=== PATIENT | male | born 1995 | race Caucasian/White ===

== ENCOUNTER 2020-12-08 16:02 | Observation (INO) | payer MEDICAID, SELFPAY ==
[2020-12-08] VITALS (9 sets, daily range): BP systolic 114–126; BP diastolic 57–92; PULSE 80–118; RESP 13–18; TEMP 36.7–36.9; O2SAT 98–100; BMI 19.3; BMI 18.1
--- NOTE | 2020-12-08 16:26 | EKG12_ITS ---
Test Reason : Blood Pressure : / mmHG Vent. Rate : 115 BPM Atrial Rate : 115 BPM P-R Int : 150 ms QRS Dur : 148 ms QT Int : 372 ms P-R-T Axes : 054 -62 102 degrees QTc Int : 514 ms Atrial-sensed ventricular-paced rhythm Abnormal ECG Confirmed by ENRIQUETA VILLANUEVA, GUILLE ([id number]), film and video editor EARLINE GIRARD ([id number]) on 12/11/2020 7:49:56 AM Referred By: Confirmed By:GUILLE ROBISON MD
--- NOTE | 2020-12-08 16:26 | EDS_ITS ---
HPI History of Present Illness Chief Complaint: Chest Pain Detail of Chief Complaint: Pain and request for detox from heroin Informant: patient Onset/Context/Timing Current Severity: 0/10 Narrative Narrative: Patient states that he was walking when he developed left-sided chest pain that was sharp and stabbing and last about 25 to 30 minutes. Patient presents via EMS. Patient states that he is homeless and was stranded in the area here but he is from [facility]. Patient tells me that he is homeless. Patient states that he uses heroin daily and last used around 1 PM. He normally uses about a gram a day and he snorts it. Patient currently not having chest pain. 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 He has no primary care physician. He denies recent travel or surgery. Patient states he is had similar pain in the past but no etiology has been found. Prior similar symptoms: Yes [facility] Medical History (Updated 12/08/20 @ 17:[address] Sal Jerome, DO) Pacemaker Third degree heart block Home Medications NK 12/08/20 [History Last Taken Unknown] Allergy/AdvReac Type Severity Reaction Status Date / Time No Known Allergies Allergy Verified 12/08/20 16:04 Social History Smoking Status: Current every day smoker tobacco type: cigarettes ROS ROS ED Constitutional Constitutional ED: Reports systems reviewed and no addt'l complaints, except as documented; Denies body ache(s), change in weight or chills Eyes Eyes: Denies acute decrease in peripheral vision, change in vision, double vision or loss of vision ENT ENT ED: Reports none; Denies ear pain, lip swelling, loss taste/smell, neck pain, otalgia or sore throat Cardiovascular Cardiovascular: Reports none and chest pain; Denies abdominal pain, chest pain with activity, leg edema, lightheadedness, palpitations, rapid heart rate or syncope Respiratory/Chest Respiratory/Chest: Reports none; Denies change in mental status, dry cough, dyspnea, hemoptysis, shortness of breath at rest or shortness of breath with exertion Gastrointestinal Gastrointestinal: Reports none; Denies abdominal pain, change in stool character, diarrhea, hematemesis, hematochezia, melena, rectal bleeding or vomiting Genitourinary Genitourinary ED: Reports none; Denies abdominal discomfort, anuria, dysuria, genital pain or polyuria Musculoskeletal Musculoskeletal: Reports none; Denies arthralgias, back pain, difficulty walking, extremity pain, muscle weakness or myalgias Integumentary Reports none; Denies abscess or rash Neurologic Neurologic: Reports none; Denies abnormal gait, confusion, focal weakness, frequent falls, headache(s), loss of vision, numbness, paresthesias, radicular pain, vertigo or weakness Psychiatric Psychiatric: Reports systems reviewed and no addt'l complaints, except as documented and none; Denies behavioral changes, confusion, difficulty concentrating, hallucinations, suicidal ideation, tactile hallucinations or visual hallucinations Endocrine Endocrinology: Denies none, cold intolerance, excessive sweating, fatigue or heat intolerance Hematologic/Lymphatic Hematologic/Lymphatic: Reports none; Denies anemia, easy bleeding or easy bruising Allergic/Immunologic Allergic/Immunologic ED: Denies as per HPI, none, lip swelling, mouth swelling, throat swelling, tongue swelling or hives EXAM Physical Exam Const Vital Signs: 12/08/20 16:04 12/08/20 16:10 12/08/20 16:50 Temperature 98.1 F Temperature Source Temporal Pulse Rate 118 H 103 H Respiratory Rate 13 16 Respiratory Effort Normal Non-Labored Respiratory Pattern Normal Blood Pressure 126/90 H 114/92 H Blood Pressure Mean 102 99 Pulse Ox 100 100 Oxygen Delivery Method Room Air Room Air Positive well nourished and well developed General Appearance ED: well developed and NAD HEENT Reports TM's clear and moist mucous membranes normocephalic and atraumatic; Negative for trauma or tenderness Tympanic Membrane ED: Yes TM's clear Eyes PERRL and EOMs intact bilaterally General Eye ED: Negative for pale conjunctiva or scleral icterus Neck no lymphadenopathy, supple and no JVD General: Negative for tenderness Chest Wall inspection of chest normal and palpation of chest normal Chest: Negative for tenderness Resp normal respiratory effort and clear to auscultation bilaterally Effort and Inspection: Negative for respiratory distress or pain with movement Auscultation: Negative for rhonchi, wheezes or diminished lung sounds Cardio regular rate, regular rhythm, S1 normal heart sound, S2 normal heart sound and no murmurs Peripheral Pulses: pulses 2+ throughout GI normal to inspection, nondistended, normoactive bowel sounds, soft to palpation, non-tender, non-distended and no masses Back/Spine no CVA tenderness and no thoracic nor lumbar tenderness Extremity normal to inspection General Extremety ED: Negative for edema General Extremity: Negative for edema Neuro oriented x3, CN's II-XII intact bilaterally, no sensory deficits noted and gait normal Sensorium / Orientation: awake, alert, oriented to person, oriented to place and oriented to time Motor Exam: strength 5/5 throughout and strength abnormal Psych mental status grossly normal Skin no rashes or lesions noted and no wounds MDM MDM MDM Narrative Medical decision making narrative: Case discussed with hospitalist will evaluate patient for admission for detox from heroin. Etiology of patient's chest pain unclear although I do not feel its related to coronary artery disease. Lab Data Attestation: I reviewed the patient's lab results. Labs: Laboratory Results - last 24 hr 12/08/20 12/08/20 Unknown Unknown WBC 21.8 H RBC 5.64 Hgb 16.8 H Hct 50.2 MCV 89.0 MCH 29.8 MCHC 33.5 RDW Std Deviation 43.1 RDW Coeff of Roxana 13.2 Plt Count 398 MPV 11.5 Immature Gran % (Auto) 0.600 Neut % (Auto) 70.3 H Lymph % (Auto) 21.2 [place] % (Auto) 6.3 Eos % (Auto) 1.2 Baso % (Auto) 0.4 Absolute Neuts (auto) 15.3 H Absolute Lymphs (auto) 4.63 H Nucleated RBC % 0 Sodium 130 L Potassium 4.1 Chloride 94 L Carbon Dioxide 25.0 Anion Gap 11 BUN 26 H Creatinine 1.19 Estim Creat Clear Calc 89.12 Est GFR (MDRD) Af Amer 96 Est GFR (MDRD) Non-Af 79 BUN/Creatinine Ratio 21.8 H Glucose 76 Calcium 11.0 H Troponin I High Sens 36.1 Radiography Chest X-Ray - ED: 1 View Diagnostic Testing: Radiology Impression Chest X-Ray 12/08/20 16:30 IMPRESSION: No acute radiographic abnormalities. Electronically Signed: Michael Mccauley MD at 16:59 EDT Tel , Service support , 1 view chest are obtained interpreted by myself as no acute disease process. Radiology in agreement. EKG Initial EKG: Comments: Atrially sensed ventricularly paced rhythm with a ventricular ra te of 115 bpm with left bundle branch block morphology. Prior EKG tracings: not available for review Discharge Plan Triage Chief Complaint: Chest Pain Other Complaint: Palpitations ED Provider: Sal Jerome Dx/Rx/DC Orders Clinical Impression: Chest pain, Opiate addiction Prescriptions: No Action NK RF: 0 Primary Care Provider: Care Physician,No Primary Referrals: Care Physician,No Primary [Primary Care Provider] - Disposition Disposition: Acute Care Hospital [facility]
[2020-12-08] MEDS: 0.9% Normal Saline 1,000 ML 1000 ML IV (16:30)
--- NOTE | 2020-12-08 16:30 | RAD_ITS ---
INDICATION: chest pain EXAMINATION/TECHNIQUE: X-RAY - XR Chest 1 View COMPARISON: None. FINDINGS: The lungs are clear. The cardiomediastinal silhouette is unremarkable. Left-sided cardiac device. No pleural effusion or pneumothorax. No acute osseous abnormalities. RAD/Chest 1 View (Portable) IMPRESSION: No acute radiographic abnormalities. Electronically Signed: Michael Mccauley MD at 16:59 EDT Tel , Service support ,
[2020-12-08 17:03] LABS: Absolute Lymphocyte Count 4.63 X10^3/uL (0.83-4.51); Absolute Neutrophil Count 15.3 X10^3/uL (2.0-7.7); Basophil# 0.09 X10^3/uL; Basophil% 0.4 % (0-1); Eosinophil# 0.26 X10^3/uL; Eosinophils% 1.2 % (0-5); Hematocrit 50.2 % (40-54); Hemoglobin 16.8 g/dL (13.0-16.5); Lymphocyte # 4.63 X10^3/ul (0.83-4.51); Lymphocyte % 21.2 % (19-41); Mean Corp Hgb Conc 33.5 g/dL (32-36); Mean Corpuscular Hgb 29.8 pg (27.0-32.0); Mean Platelet Vol. 11.5 fl (6.2-12.0); Monocyte# 1.37 X10^3/uL; Monocyte% 6.3 % (0-10); NRBC Flagged by Analyzer 0 % (0-5); Neutrophil # 15.34 X10^3/uL (2.7-7.7); Neutrophil % 70.3 % (47-70); Platelet Count 398 K/mm3 (150-450); RBC Distribution Width CV 13.2 % (11.6-14.6); RBC Distribution Width SD 43.1 fl (35.1-43.9); Red Blood Count 5.64 M/mm3 (4.6-6.2); White Blood Count 21.8 K/mm3 (4.4-11.0)
[2020-12-08 17:19] LABS: Anion Gap 11 (5-15); BUN 26 mg/dL (7-18); BUN/Creat Ratio 21.8 RATIO (10-20); Chloride 94 mmol/L (98-107); Creatinine, Serum 1.19 mg/dL (0.70-1.30); EST Glomerular Filtration Rate 79 mL/min (>60); Est Glom Filt Rate - Afr Amer 96 mL/min (>60); Estimated Creatinine Clearance 89.12 ml/min; Glucose 76 mg/dL (74-106); Potassium 4.1 mmol/L (3.5-5.1); Sodium Level 130 mmol/L (136-145); Troponin-I HS 36.1 pg/mL (3.0-78.5)
[2020-12-08 18:03] LABS: Amphetamine Urine VISTA POSITIVE (<1000 ng/mL); Barbiturate Urine VISTA POSITIVE (< 200 ng/mL); Benzodiazepine Urine VISTA NEGATIVE (< 200 ng/mL); Cocaine Urine VISTA NEGATIVE (< 300 ng/mL); Ecstacy Urine VISTA NEGATIVE (< 500 ng/mL); Methadone Urine VISTA NEGATIVE (< 300 ng/mL); PCP Urine VISTA NEGATIVE (< 25 ng/mL); THC Urine VISTA NEGATIVE (< 50 ng/mL); Vista UDS pH Range 5
--- NOTE | 2020-12-08 18:08 | HP.PCM.HOS_ITS ---
Documented by User: Santos IBARRA 12/08/20 18:38 HPI - General HPI Narrative MELANIE HUMPHREY is a 25 M who presents to the ED at [facility] on 12/08/2020 requesting detox from heroin use. Patient reports that he snorts about a gram of heroin per day, patient endorses that he has been using heroin for about 5 years. Patient denies any IV drug use or smoking of heroin. Patient reports that his last use was earlier this afternoon. Patient has attempted to detox from heroin before, however is not able to maintain his sobriety. Patient denies any other prescription or illicit drug abuse. Patient does endorse smoking cigarettes with a 5-pack-year history. Patient does endorse chest pain under the left breast, which he describes as a crushing sensation. Patient reports that this sensation has subsided since he is presented to the ED. Past medical history is significant for pacemaker, patient is unable to recall any cardiac medical history. Patient denies shortness of breath, hemoptysis, sputum production, fever, chills, N/V/D. Patient endorses currently being homeless and does not identify any friends or family for social support. Vital signs in the ED were tachycardic ranging between 100 to 120 bpm. EKG in the ED demonstrated ventricular tachycardia at a rate of 115 bpm. Chest x-ray does not demonstrate any acute cardiopulmonary process. CBC demonstrates a leukocytosis at 22,000. BMP demonstrates hyponatremia at 130 and hypercalcemia at 11.0 mg/dL. Initial high sensitive troponins not elevated. Urine tox screen negative for opiates however positive for barbiturates and amphetamines. Ethyl alcohol 9 mg/dL. Patient was given IV fluids in the emergency department. [facility] Medical History (Updated 12/08/20 @ 18:36 by Santos IBARRA) Hepatitis Hepatitis C Pacemaker Pacemaker Smoker Substance abuse Third degree heart block Tobacco abuse Home Medications NK 12/08/20 [History Last Taken Unknown] Allergy/AdvReac Type Severity Reaction Status Date / Time No Known Allergies Allergy Verified 12/08/20 16:04 Family History (Updated 12/08/20 @ 18:22 by Santos IBARRA) Father No problems noted. Mother No problems noted. Social History (Updated 12/08/20 @ 18:[address] Josi Hills MD) household members: other details: Homeless Smoking Status: Current every day smoker tobacco type: cigarettes Smoking packs per day: 1 Smoking cigarettes per day: 20.0 alcohol intake: former details: No current EtOH intake, denies abuse history. substance use type: heroin and other details: Prior IVDA history, has transitioned to heroin, snorting, 1 gm daily. ROS Constitutional Constitutional: Denies anorexia, change in weight, chills, fatigue, fever(s), malaise, night sweats, weakness or other Eyes Eyes: Denies blurry vision, change in eye color, change in vision, discharge from eye(s), double vision, erythema, eye pain, loss of vision or other ENT HEENT: Denies abnormal hearing, dysphagia, ear pain, epistaxis, headache(s), hearing loss, nasal congestion, nasal discharge, post nasal drip, sinus pressure, sore throat or other Cardiovascular Cardiovascular: Reports chest pain and palpitations; Denies claudication, dyspnea on exertion, edema, lightheadedness, orthopnea, paroxysmal nocturnal dyspnea, rapid heart rate, syncope or other Respiratory/Chest Respiratory/Chest: Denies cough, dyspnea, excessive phlegm production, hemoptysis, productive cough, shortness of breath at rest, shortness of breath with exertion, wheezing or other Gastrointestinal Gastrointestinal: Denies abdominal pain, coffee ground emesis, constipation, diarrhea, dyspepsia, hematemesis, hematochezia, loose stools, melena, nausea, vomiting or other Genitourinary Genitourinary: Denies burning urination, difficulty urinating, dysuria, hematuria, nocturia, urinary frequency, urinary hesitancy, urinary incontinence, urinary urgency or other Musculoskeletal Musculoskeletal: Denies arthralgias, back pain, joint pain, joint stiffness, joint swelling, myalgias, neck pain or other Neurologic Neurologic: Denies abnormal gait, abnormal speech, confusion, disequilibrium, dizziness, focal weakness, headache(s), numbness, paresthesias, seizure-like activity, seizures, syncope, tingling, tremor(s) or other Psychiatric Psychiatric: Denies anxiety, depression, homicidal ideation, suicidal ideation or other Hematologic/Lymphatic Hematologic/Lymphatic: Denies anemia, easy bleeding, easy bruising, lymphadenopathy or other Vital Signs Vital Signs Vital Signs: 12/08/20 16:04 12/08/20 16:10 12/08/20 16:50 Temperature 98.1 F Temperature Source Temporal Pulse Rate 118 H 103 H Respiratory Rate 13 16 Respiratory Effort Normal Non-Labored Respiratory Pattern Normal Blood Pressure 126/90 H 114/92 H Blood Pressure Mean 102 99 Pulse Ox 100 100 Oxygen Delivery Method Room Air Room Air Weight Weight: 146 lb 6.191 oz Body Mass Index (BMI) 19.3 Physical Exam Const alert and oriented x3 General Appearance: cooperative HEENT normocephalic, head/scalp atraumatic and hearing grossly normal bilaterally Eyes EOMs intact bilaterally and conjunctivae normal Neck no lymphadenopathy, supple and no JVD Resp normal respiratory effort, no retractions, no use of accessory muscles and clear to auscultation bilaterally Cardio no murmurs and no JVD Rate: tachycardic GI normal to inspection, nondistended, normoactive bowel sounds, soft to palpation, non-tender and non-distended Extremity normal to inspection, full ROM and no clubbing, cyanosis or edema Skin no rashes or lesions noted, no wounds, skin turgor normal and no jaundice Neuro CN's II-XII intact bilaterally Psych affect normal Results Lab / Micro Data Result Diagrams: 12/08/20 Unknown 12/08/20 Unknown Labs: Laboratory Results - last 24 hr 12/08/20 12/08/20 12/08/20 17:00 17:45 Unknown WBC 21.8 H RBC 5.64 Hgb 16.8 H Hct 50.2 MCV 89.0 MCH 29.8 MCHC 33.5 RDW Std Deviation 43.1 RDW Coeff of Roxana 13.2 Plt Count 398 MPV 11.5 Immature Gran % (Auto) 0.600 Neut % (Auto) 70.3 H Lymph % (Auto) 21.2 [place] % (Auto) 6.3 Eos % (Auto) 1.2 Baso % (Auto) 0.4 Absolute Neuts (auto) 15.3 H Absolute Lymphs (auto) 4.63 H Nucleated RBC % 0 Sodium Potassium Chloride Carbon Dioxide Anion Gap BUN Creatinine Estim Creat Clear Calc Est GFR (MDRD) Af Amer Est GFR (MDRD) Non-Af BUN/Creatinine Ratio Glucose Calcium Troponin I High Sens Urine Opiates Screen NEGATIVE Urine Methadone Screen NEGATIVE Ur Barbiturates Screen POSITIVE H Ur Phencyclidine Scrn NEGATIVE Ur Amphetamines Screen POSITIVE H U Methamphetamin-MDMA NEGATIVE U Benzodiazepines Scrn NEGATIVE Urine Cocaine Screen NEGATIVE U Cannabinoids Screen NEGATIVE Ur Drug Screen Comment Ethyl Alcohol 9.0 12/08/20 Unknown WBC RBC Hgb Hct MCV MCH MCHC RDW Std Deviation RDW Coeff of Roxana Plt Count MPV Immature Gran % (Auto) Neut % (Auto) Lymph % (Auto) [place] % (Auto) Eos % (Auto) Baso % (Auto) Absolute Neuts (auto) Absolute Lymphs (auto) Nucleated RBC % Sodium 130 L Potassium 4.1 Chloride 94 L Carbon Dioxide 25.0 Anion Gap 11 BUN 26 H Creatinine 1.19 Estim Creat Clear Calc 89.12 Est GFR (MDRD) Af Amer 96 Est GFR (MDRD) Non-Af 79 BUN/Creatinine Ratio 21.8 H Glucose 76 Calcium 11.0 H Troponin I High Sens 36.1 Urine Opiates Screen Urine Methadone Screen Ur Barbiturates Screen Ur Phencyclidine Scrn Ur Amphetamines Screen U Methamphetamin-MDMA U Benzodiazepines Scrn Urine Cocaine Screen U Cannabinoids Screen Ur Drug Screen Comment Ethyl Alcohol Radiology Impression Chest X-Ray 12/08/20 16:30 IMPRESSION: No acute radiographic abnormalities. Electronically Signed: Michael Mccauley MD at 16:59 EDT Tel , Service support , Assessment & Plan Assessment/Plan (1) Chest pain: (2) Opiate addiction: (3) Pacemaker: (4) Hepatitis C: PLAN: Patient is a 25-year-old male who presents to the ED at [facility] requesting medical stabilization and detox from heroin abuse. Patient will be admitted for opiate addiction with impending withdrawal. 1) opiate abuse/impending withdrawal Patient endorses a 5-year history of snorting about a gram of heroin per day. She reports that his last drug use was early this afternoon. Review of systems was negative for any symptoms related to withdrawal. Patient interested in ramp program, specifically interested in inpatient therapy. Plan; admit to PCU, request consult with [facility], initiate buprenorphine taper, Tyl enol as needed, clonidine as needed, Bentyl as needed, gabapentin as needed, hydroxyzine as needed, Imodium as needed, trazodone as needed, Zofran as needed, methocarbamol as needed. 2) chest pain Patient presented to the ED with chest pain under the left breast, patient reports pain has resolved. EKG showed ventricular tachycardia at a rate of 115 bpm. Chest x-ray does not demonstrate any acute cardiopulmonary process. Review of systems negative. Patient denies any cardiac past medical history, however does endorse having a pacemaker. Heart score 2. Plan; admit to PCU for cardiac telemetry monitoring, continue to cycle troponins, magnesium ordered, phosphorus ordered 3) status post pacemaker Patient endorses having a pacemaker installed at the age of 15. Patient reports that he follows with a Dr. Blanco in [place]. Plan; as above. 4) hepatitis C Obtain hepatitis B/C profile, obtain HIV profile. 5) homelessness Patient endorses that he is currently living on the streets. Complicates outpatient therapy for #1. Plan; case management consult ordered. 6) tobacco abuse Endorses a 5-year pack history. Plan; cessation encouraged, smoking cessation consult ordered, nicotine patch ordered 7) hyponatremia Likely due to dehydration secondary to environmental exposure as the patient identifies that he is homeless. Plan; lactated Ringer's ordered, continue to monitor BMP. DVT prophylaxis -low risk, not indicated CODE STATUS: Full code Patient seen by Santos Hart PA-C, under the supervision of Dr. Hills. Documented by User: Dr. Josi Hills MD 12/08/20 18:46 HPI - General General Date of Admission: 12/08/20 [facility] Medical History (Updated 12/08/20 @ 18:36 by Santos IBARRA) Hepatitis Hepatitis C Pacemaker Pacemaker Smoker Substance abuse Third degree heart block Tobacco abuse Home Medications NK 12/08/20 [History Last Taken Unknown] Allergy/AdvReac Type Severity Reaction Status Date / Time No Known Allergies Allergy Verified 12/08/20 16:04 Family History (Updated 12/08/20 @ 18:22 by Santos IBARRA) Father No problems noted. Mother No problems noted. other (Patient denies any marked maternal/paternal family history including DM, HTN, HD, CA.) Social History (Updated 12/08/20 @ 18:[address] Josi Hills MD) household members: other details: Homeless Smoking Status: Current every day smoker tobacco type: cigarettes Smoking packs per day: 1 Smoking cigarettes per day: 20.0 alcohol intake: former details: No current EtOH intake, denies abuse history. substance use type: heroin and other details: Prior IVDA history, has transitioned to heroin, snorting, 1 gm daily. Results Lab / Micro Data Result Diagrams: 12/08/20 Unknown 12/08/20 Unknown
--- NOTE | 2020-12-08 18:21 | EKG12_ITS ---
Test Reason : CP ADMISSION Blood Pressure : / mmHG Vent. Rate : 091 BPM Atrial Rate : 091 BPM P-R Int : 150 ms QRS Dur : 150 ms QT Int : 400 ms P-R-T Axes : 055 -64 098 degrees QTc Int : 492 ms Atrial-sensed ventricular-paced rhythm Abnormal ECG Confirmed by ENRIQUETA VILLANUEVA, GUILLE ([id number]), metropolitan editor EARLINE GIRARD ([id number]) on 12/10/2020 10:44:42 AM Referred By: KASANDRA Confirmed By:GUILLE ROBISON MD
[2020-12-08 18:42] LABS: Magnesium 1.6 mg/dL (1.6-2.6); Phosphorus 5.1 mg/dL (2.5-4.9)
[2020-12-08 19:07] LABS: HIV - WCH Non-Reactive (Nonreactive)
[2020-12-08] MEDS: Lactated Ringers 1,000 ML 125 ML IV (20:12)
[2020-12-08 20:25] LABS: Troponin-I HS 56.8 pg/mL (3.0-78.5)
[2020-12-08] MEDS: Famotidine 20 MG Tablet PO (21:53)
[2020-12-08] MEDS: Methocarbamol 750 MG Tablet 1500 MG PO (22:38)
[2020-12-08] MEDS: Buprenorphine HCl 2 MG TAB.SUBL 4 MG SL (22:39)
[2020-12-08] MEDS: Gabapentin 300 MG Capsule PO (22:39)
[2020-12-08] MEDS: Acetaminophen 325 MG Tablet 650 MG PO (22:40)
[2020-12-08 23:07] LABS: Troponin-I HS 43.9 pg/mL (3.0-78.5)
[2020-12-09] VITALS (9 sets, daily range): BP systolic 96–114; BP diastolic 51–64; PULSE 47–74; RESP 16–18; TEMP 36.3–36.7; O2SAT 97–100
[2020-12-09] MEDS: Buprenorphine HCl 2 MG TAB.SUBL 4 MG SL ×2 (05:28→15:00)
[2020-12-09] MEDS: Famotidine 20 MG Tablet PO (08:08)
[2020-12-09] MEDS: Aspirin E.C. 81 MG Tablet PO (08:08)
--- NOTE | 2020-12-09 08:09 | NURSING ---
declines any prn medications
--- NOTE | 2020-12-09 08:45 | ADDICTION ---
This casualty underwriter met with PT to cconduct ASAM, MSE, DUDIT assessments and to plan for d/c. PT A+Ox4 and engaged appropriately. All assessments completed, faxed to [facility] and placed in PT's chart. PT requested referral to [facility] for Residential treatment. THis casualty underwriter completed referral and faxed to [facility] admissions. [facility] staff reports waiting list. PT amiable to waiting to admit. Referral identified primary contact as PT as he will not be admitted or approved to admit prior to discharging from [facility] [place]. PT to d/c to home and will follow up with [facility] when bed is available. PT reports independent housing and transportation.
[2020-12-09 09:34] LABS: Absolute Lymphocyte Count 2.39 X10^3/uL (0.83-4.51); Absolute Neutrophil Count 3.1 X10^3/uL (2.0-7.7); Basophil# 0.02 X10^3/uL; Basophil% 0.3 % (0-1); Eosinophil# 0.21 X10^3/uL; Eosinophils% 3.4 % (0-5); Hematocrit 45.4 % (40-54); Hemoglobin 14.9 g/dL (13.0-16.5); Lymphocyte # 2.39 X10^3/ul (0.83-4.51); Lymphocyte % 38.7 % (19-41); Mean Corp Hgb Conc 32.8 g/dL (32-36); Mean Corpuscular Volume 91.3 fL (80-94); Mean Platelet Vol. 10.2 fl (6.2-12.0); Monocyte# 0.41 X10^3/uL; Monocyte% 6.6 % (0-10); NRBC Flagged by Analyzer 0 % (0-5); Neutrophil # 3.13 X10^3/uL (2.7-7.7); Neutrophil % 50.7 % (47-70); Platelet Count 278 K/mm3 (150-450); RBC Distribution Width CV 13.2 % (11.6-14.6); RBC Distribution Width SD 44.8 fl (35.1-43.9); Red Blood Count 4.97 M/mm3 (4.6-6.2); White Blood Count 6.2 K/mm3 (4.4-11.0)
--- NOTE | 2020-12-09 09:46 | ADDICTION ---
This auto service writer met with PT to conduct ASAM, MSE, DUDIT assessments and to plan for d/c. PT A+Ox4 and engaged appropriately. All assessments completed, faxed to [facility] and placed in PT's chart. PT requesting referral to [facility]. Referral made, this auto service writer will collaborate with PT and Replaced by [facility] for admit.
[2020-12-09 09:53] LABS: ALB/GLOB Ratio 1.1 RATIO (0.9-2.4); AST(SGOT) 116 U/L (15-37); Alanine Aminotransfer ALT/SGPT 123 U/L (16-61); Albumin, Serum 3.6 g/dL (3.2-5.0); Alkaline Phosphatase 97 U/L (45-117); Anion Gap 6 (5-15); BUN 13 mg/dL (7-18); BUN/Creat Ratio 16.5 RATIO (10-20); Calcium,Total 8.9 mg/dL (8.5-10.1); Chloride 103 mmol/L (98-107); Creatinine, Serum 0.79 mg/dL (0.70-1.30); EST Glomerular Filtration Rate 127 mL/min (>60); Est Glom Filt Rate - Afr Amer 154 mL/min (>60); Estimated Creatinine Clearance 125.64 ml/min; Globulin 3.2 g/dL (2.2-4.2); Glucose 113 mg/dL (74-106); Magnesium 1.9 mg/dL (1.6-2.6); Phosphorus 3.1 mg/dL (2.5-4.9); Potassium 4.2 mmol/L (3.5-5.1); Protein, Total 6.8 g/dL (6.4-8.2); Sodium Level 137 mmol/L (136-145)
--- NOTE | 2020-12-09 10:50 | PCM.PN.HOSP ---
Documented by User: Santos IBARRA 12/09/20 11:08 Objective Data Objective Data Vital Signs: Vital Signs Temp Pulse Resp BP Pulse Ox 97.5 F L 69 16 100/63 100 12/09/20 08:05 12/09/20 08:05 12/09/20 08:05 12/09/20 08:05 12/09/20 08:05 Oxygen Delivery Method Room Air Weight: 136 lb 15.994 oz Body Mass Index (BMI) 18.1 Intake & Output: Intake and Output for Last 24 Hours 12/07/20 12/08/20 12/09/20 23:59 23:59 23:59 Intake Total 1000 / 1200 1300 / 1300 Balance 1000 / 1200 1300 / 1300 Lab / Micro Data Result Diagrams: 12/09/20 09:25 12/09/20 09:25 Labs: Laboratory Results - last 24 hr 12/08/20 12/08/20 12/08/20 17:00 17:00 17:00 WBC RBC Hgb Hct MCV MCH MCHC RDW Std Deviation RDW Coeff of Roxana Plt Count MPV Immature Gran % (Auto) Neut % (Auto) Lymph % (Auto) [place] % (Auto) Eos % (Auto) Baso % (Auto) Absolute Neuts (auto) Absolute Lymphs (auto) Nucleated RBC % Sodium Potassium Chloride Carbon Dioxide Anion Gap BUN Creatinine Estim Creat Clear Calc Est GFR (MDRD) Af Amer Est GFR (MDRD) Non-Af BUN/Creatinine Ratio Glucose Calcium Phosphorus 5.1 H Magnesium 1.6 Total Bilirubin AST ALT Alkaline Phosphatase Troponin I High Sens Total Protein Albumin Globulin Albumin/Globulin Ratio Urine Opiates Screen Urine Methadone Screen Ur Barbiturates Screen Ur Phencyclidine Scrn Ur Amphetamines Screen U Methamphetamin-MDMA U Benzodiazepines Scrn Urine Cocaine Screen U Cannabinoids Screen Ur Drug Screen Comment Ethyl Alcohol 9.0 HIV 1&2 Antibody Non-Reactive 12/08/20 12/08/20 12/08/20 17:45 19:40 22:38 WBC RBC Hgb Hct MCV MCH MCHC RDW Std Deviation RDW Coeff of Roxana Plt Count MPV Immature Gran % (Auto) Neut % (Auto) Lymph % (Auto) [place] % (Auto) Eos % (Auto) Baso % (Auto) Absolute Neuts (auto) Absolute Lymphs (auto) Nucleated RBC % Sodium Potassium Chloride Carbon Dioxide Anion Gap BUN Creatinine Estim Creat Clear Calc Est GFR (MDRD) Af Amer Est GFR (MDRD) Non-Af BUN/Creatinine Ratio Glucose Calcium Phosphorus Magnesium Total Bilirubin AST ALT Alkaline Phosphatase Troponin I High Sens 56.8 43.9 Total Protein Albumin Globulin Albumin/Globulin Ratio Urine Opiates Screen NEGATIVE Urine Methadone Screen NEGATIVE Ur Barbiturates Screen POSITIVE H Ur Phencyclidine Scrn NEGATIVE Ur Amphetamines Screen POSITIVE H U Methamphetamin-MDMA NEGATIVE U Benzodiazepines Scrn NEGATIVE Urine Cocaine Screen NEGATIVE U Cannabinoids Screen NEGATIVE Ur Drug Screen Comment Ethyl Alcohol HIV 1&2 Antibody 12/08/20 12/08/20 12/09/20 Unknown Unknown 09:25 WBC 21.8 H 6.2 RBC 5.64 4.97 Hgb 16.8 H 14.9 Hct 50.2 45.4 MCV 89.0 91.3 MCH 29.8 30.0 MCHC 33.5 32.8 RDW Std Deviation 43.1 44.8 H RDW Coeff of Roxana 13.2 13.2 Plt Count 398 278 MPV 11.5 10.2 Immature Gran % (Auto) 0.600 0.300 Neut % (Auto) 70.3 H 50.7 Lymph % (Auto) 21.2 38.7 [place] % (Auto) 6.3 6.6 Eos % (Auto) 1.2 3.4 Baso % (Auto) 0.4 0.3 Absolute Neuts (auto) 15.3 H 3.1 Absolute Lymphs (auto) 4.63 H 2.39 Nucleated RBC % 0 0 Sodium 130 L Potassium 4.1 Chloride 94 L Carbon Dioxide 25.0 Anion Gap 11 BUN 26 H Creatinine 1.19 Estim Creat Clear Calc 89.12 Est GFR (MDRD) Af Amer 96 Est GFR (MDRD) Non-Af 79 BUN/Creatinine Ratio 21.8 H Glucose 76 Calcium 11.0 H Phosphorus Magnesium Total Bilirubin AST ALT Alkaline Phosphatase Troponin I High Sens 36.1 Total Protein Albumin Globulin Albumin/Globulin Ratio Urine Opiates Screen Urine Methadone Screen Ur Barbiturates Screen Ur Phencyclidine Scrn Ur Amphetamines Screen U Methamphetamin-MDMA U Benzodiazepines Scrn Urine Cocaine Screen U Cannabinoids Screen Ur Drug Screen Comment Ethyl Alcohol HIV 1&2 Antibody 12/09/20 09:25 WBC RBC Hgb Hct MCV MCH MCHC RDW Std Deviation RDW Coeff of Roxana Plt Count MPV Immature Gran % (Auto) Neut % (Auto) Lymph % (Auto) [place] % (Auto) Eos % (Auto) Baso % (Auto) Absolute Neuts (auto) Absolute Lymphs (auto) Nucleated RBC % Sodium 137 Potassium 4.2 Chloride 103 Carbon Dioxide 28.0 Anion Gap 6 BUN 13 Creatinine 0.79 Estim Creat Clear Calc 125.64 Est GFR (MDRD) Af Amer 154 Est GFR (MDRD) Non-Af 127 BUN/Creatinine Ratio 16.5 Glucose 113 H Calcium 8.9 Phosphorus 3.1 Magnesium 1.9 Total Bilirubin 0.60 AST 116 H ALT 123 H Alkaline Phosphatase 97 Troponin I High Sens Total Protein 6.8 Albumin 3.6 Globulin 3.2 Albumin/Globulin Ratio 1.1 Urine Opiates Screen Urine Methadone Screen Ur Barbiturates Screen Ur Phencyclidine Scrn Ur Amphetamines Screen U Methamphetamin-MDMA U Benzodiazepines Scrn Urine Cocaine Screen U Cannabinoids Screen Ur Drug Screen Comment Ethyl Alcohol HIV 1&2 Antibody Radiography Diagnostic Testing: Radiology Impression Chest X-Ray 12/08/20 16:30 IMPRESSION: No acute radiographic abnormalities. Electronically Signed: Michael Mccauley MD at 16:59 EDT Tel , Service support , Assessment & Plan Assessment/Plan (1) Opiate addiction: (2) Chest pain: PLAN: Day 2: See subjective for patient presentation. Discharge planning: Referral has been put in by addiction medicine specialist for [facility] residential treatment when patient is discharged. Patient will most likely discharge home and then be called when bed is available for [facility]. 1) opiate abuse/impending withdrawal Patient met with addiction medicine specialist; referall put in to [facility] for residential treatment. Patient stable upon my examination. Plan; admit to PCU, request consult with [facility], initiate buprenorphine taper, Tylenol as needed, clonidine as needed, Bentyl as needed, gabapentin as needed, hydroxyzine as needed, Imodium as needed, trazodone as needed, Zofran as needed, methocarbamol as needed. 2) chest pain High-sensitivity troponins not elevated. Magnesium and phosphorus within normal limits. Patient denies any chest pain, shortness of breath, palpitations, cough, hemoptysis, sputum production, lower extremity pain/swelling. Echocardiogram put in per Dr. Vidal, patient refused an echocardiogram canceled. Plan; admit to PCU for cardiac telemetry monitoring, continue to cycle troponins. 3) status post pacemaker Patient endorses having a pacemaker installed at the age of 15. Patient reports that he follows with a Dr. Blanco in [place]. Plan; as above. 4) hepatitis C HIV antibodies nonreactive. Hepatitis panel ordered/pending 5) homelessness Patient endorses that he is currently living on the streets. Complicates outpatient therapy for #1. Plan; case management consult ordered. 6) tobacco abuse Endorses a 5-year pack history. Plan; cessation encouraged, smoking cessation consult ordered, nicotine patch ordered 7) hyponatremia Resolved, continue to monitor BMP. DVT prophylaxis -low risk, not indicated Patient seen by Santos Hart PA-C, under the supervision of Dr. Vidal Documented by User: Dr. Bhavesh Vidal MD 12/09/20 14:07 Subjective Subjective Patient was admitted with acute opioid withdrawal and chest pain. Your last chest pain about 2 years ago. Yesterday, after snorting opioids, heroin 1.5 g, he got chest pain on left side, crushing sensation, localized, lasted for about 20 minutes along with palpitation, fluttering dizziness. He usually snorts heroine 1 g daily. Objective Data Lab / Micro Data Result Diagrams: 12/09/20 09:25 12/09/20 09:25 Physical Exam Narrative Physical exam hall monitor shows wide complex paced rhythm tachycardia since admission until 6 PM yesterday and then normal rate paced rhythm and then bradycardia last night registered dental assistant rda. Refused for 2D echo. General: Alert, Oriented x3, Cooperative HEENT: Atraumatic, PERRLA, EOMI, Normocephalic Oral: No Gingival or Mucosal Lesions/ Ulcerations Neck: Supple, No JVD, Negative Carotid Bruits Lungs: Air entry equal in bilateral lung bases. No crepitation/rhonchi Cardiovascular: Paced rhythm in 60s, Normal S1, Normal S2, No murmurs Abdomen: Bowel Sounds Present, Soft, Non Tender, Non-Distended : No renal angle tenderness. No suprapubic tenderness. Extremities: No edema, Capillary Refill Less than 3 Seconds Skin: No rashes, No breakdown Musculoskeletal: Mild to moderate decrease in muscle bulk of extremities. No Tenderness to Palpation of Joints or Extremities Neurological: Cranial nerves II-XII grossly intact, Deep Tendon Reflexes 2+/4 and Symmetrical, Neuro grossly intact Psych/Mental Status: Restless and anxious. Assessment & Plan Assessment/Plan (1) Opiate addiction: (2) Chest pain: PLAN: This patient was seen in conjunction with FRED Santacruz. I have independently interviewed and examined the patient and reviewed pertinent history, examination findings, laboratory and plan of management. I have reviewed the note and agree with the documented findings with the few additional points. In brief, patient is 25-year-old gentleman with chronic heroin use and dependence admitted for opioid withdrawal symptoms along with chest pain. Serial troponins are negative. Serum magnesium and phosphorus level are normal. Twelve-lead EKG reviewed and shows paced rhythm although first 1 tachycardia at 123 bpm. Medical record from [facility] reviewed from 2002. 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 He had a pacemaker inserted in 2002. He had several echoes, last one in May 2016. It shows bicuspid aortic valve, normal LV size and function. No mitral valve prolapse, no MR. No AR or . Normal atrial sinus. Normal related great vessels. No coronary sinus dilatation. No ASD, no VSD, coarctation of aorta or PDA. Patient refused for 2D echo. Discussed the rhythm with brine process operator, Dr. Mota and pacemaker integration is ordered. Leukocytosis is resolved. Electrolytes in normal range. ALT AST elevated probably viral hepatitis. Viral hepatitis panel pending. HIV 1 and 2 antibody are negative/nonreactive. Total time of the visit including total time spent in counseling or coordination of care, (more than 50% of the total time, spent in obtaining medical information from nurses and other ancillary care providers,explaining to the patient about labs, imaging, diagnosis and management), discussion with brine process operator, review of labs, records from [facility] and imaging is 30 minutes. I have discussed my assessment with FRED Santacruz and orders have been reviewed. Charges/Coding Visit Charges Inpatient E&M: 79381 Subs Hosp L3
--- NOTE | 2020-12-09 15:02 | NURSING ---
declines any prn meds for symptom management
--- NOTE | 2020-12-09 15:46 | NURSING ---
Device RNHillary saw patient. States he has about 1 year of battery life left and will need to f/u with Dr Blanco, precision dancer at [place]>
--- NOTE | 2020-12-09 18:45 | NURSING ---
After patient's shower cigarette smoke was smelled in the room. When first confronted patient denied. Patients RN and this RN went to the room to ask again.When he denied we asked if we should look around the room. He then produced a acid purification equipment operator from the nightstand and and his pack of cigarettes from his black RAMP tote of personal belongings with 2 of the zip ties cut off. He also produced the broken zip ties. When this RN asked how he got into the bin he replied that hew used a butter knife from his tray. This RN reminded him this was a direct violation of the RAMP contract. After speaking with FRED Graham, he agreed patient should go AMA as a result of breaking the contract. This RN reminded Tanner and patient that his pacer battery was found to have one year left of battery and he will need to see his stone rubber for followup. Lesvia harris signed. Patient left without incident.
--- NOTE | 2020-12-09 18:57 | DS.PCM_ITS ---
Documented by User: Santos IBARRA 12/09/20 18:59 Providers Date of Admission: 12/08/20 Primary Care Physician: No Primary Care Phys Reason For Visit: HEROIN WITHDRAWAL, CHEST PAIN Diagnosis Discharge Diagnosis (1) Opiate addiction: Status: Acute Code(s): F11.20 - Opioid dependence, uncomplicated (2) Chest pain: Status: Acute Code(s): R07.9 - Chest pain, unspecified Medications at Discharge Home Medications NK 12/08/20 Hospital Course Summary of Care Provided Minutes Spent on Discharge: 35 Hospital Course: Patient is a 25-year-old male who was admitted to the hospital for opiate abuse/impending withdrawal who left AGAINST MEDICAL ADVICE today. Patient broke into his foot locker where his secured items were stored and proceeded to smoke in the room, which is a breech of contract into the ramp program. Patient was told that since he broke his contract he can no longer be a round patent at which point he voiced desire to leave AGAINST MEDICAL ADVICE. AMA form was signed and patient was discharged. Please refer to my progress note from today for pertinent subjective, objective, assessment and plan. Patient seen by Santos Hart PA-C, under the supervision of Dr. Vidal. Weight / BMI Weight Weight: 136 lb 15.994 oz Body Mass Index (BMI) 18.1 ABG / Lab / Microbiology Data Result Diagrams: 12/09/20 09:25 12/09/20 09:25 Laboratory: Laboratory Results - last 24 hr 12/08/20 12/08/20 12/08/20 17:00 19:40 22:38 WBC RBC Hgb Hct MCV MCH MCHC RDW Std Deviation RDW Coeff of Roxana Plt Count MPV Immature Gran % (Auto) Neut % (Auto) Lymph % (Auto) [place] % (Auto) Eos % (Auto) Baso % (Auto) Absolute Neuts (auto) Absolute Lymphs (auto) Nucleated RBC % Sodium Potassium Chloride Carbon Dioxide Anion Gap BUN Creatinine Estim Creat Clear Calc Est GFR (MDRD) Af Amer Est GFR (MDRD) Non-Af BUN/Creatinine Ratio Glucose Calcium Phosphorus Magnesium Total Bilirubin AST ALT Alkaline Phosphatase Troponin I High Sens 56.8 43.9 Total Protein Albumin Globulin Albumin/Globulin Ratio HIV 1&2 Antibody Non-Reactive 12/09/20 12/09/20 09:25 09:25 WBC 6.2 RBC 4.97 Hgb 14.9 Hct 45.4 MCV 91.3 MCH 30.0 MCHC 32.8 RDW Std Deviation 44.8 H RDW Coeff of Roxana 13.2 Plt Count 278 MPV 10.2 Immature Gran % (Auto) 0.300 Neut % (Auto) 50.7 Lymph % (Auto) 38.7 [place] % (Auto) 6.6 Eos % (Auto) 3.4 Baso % (Auto) 0.3 Absolute Neuts (auto) 3.1 Absolute Lymphs (auto) 2.39 Nucleated RBC % 0 Sodium 137 Potassium 4.2 Chloride 103 Carbon Dioxide 28.0 Anion Gap 6 BUN 13 Creatinine 0.79 Estim Creat Clear Calc 125.64 Est GFR (MDRD) Af Amer 154 Est GFR (MDRD) Non-Af 127 BUN/Creatinine Ratio 16.5 Glucose 113 H Calcium 8.9 Phosphorus 3.1 Magnesium 1.9 Total Bilirubin 0.60 AST 116 H ALT 123 H Alkaline Phosphatase 97 Troponin I High Sens Total Protein 6.8 Albumin 3.6 Globulin 3.2 Albumin/Globulin Ratio 1.1 HIV 1&2 Antibody Meaningful Use Info Meaningful Use Diagnoses (Choose all that apply): None applicable Discharge Plan Admission Admit Date/Time: 12/08/20 18:02 Attending Provider: Bhavesh Vidal Primary Care Provider: Care Physician,No Primary Instructions Additional Instructions / Restrictions: PATIENT LEFT AMA Discharge Orders/Prescriptions Prescriptions: No Action NK RF: 0 Referrals / Follow Up: Care Physician,No Primary [Primary Care Provider] - Disposition Disposition (needs filled in before D/C Order can be placed): Home, Self Care Documented by User: Dr. Bhavesh Vidal MD 12/10/20 11:57 Providers Date of Admission: 12/08/20 Reason For Visit: HEROIN WITHDRAWAL, CHEST PAIN Medications at Discharge Home Medications NK 12/08/20 Hospital Course Summary of Care Provided Hospital Course: This patient was seen in conjunction with FRED Santacruz. I have independently interviewed and examined the patient and reviewed pertinent history, examination findings, laboratory and plan of management. I have reviewed the note and agree with the documented findings with the few additional points. In brief, patient is 25-year-old gentleman with chronic heroin use and dependence admitted for opioid withdrawal symptoms along with chest pain. Serial troponins are negative. Serum magnesium and phosphorus level are normal. Twelve-lead EKG reviewed and shows paced rhythm although first 1 tachycardia at 123 bpm. Medical record from [facility] reviewed from 2002. 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 He had a pacemaker inserted in 2002. He had several echoes, last one in May 2016. It shows bicuspid aortic valve, normal LV size and function. No mitral valve prolapse, no MR. No AR or . Normal atrial sinus. Normal related great vessels. No coronary sinus dilatation. No ASD, no VSD, coarctation of aorta or PDA. Patient refused for 2D echo. Discussed the rhythm with color card maker, Dr. Mota and pacemaker integration is ordered. Leukocytosis is resolved. Electrolytes in normal range. ALT AST elevated pro bably viral hepatitis. Viral hepatitis panel pending. HIV 1 and 2 antibody are negative/nonreactive. Patient advised against AMA and further need for treatment for opioid withdrawal symptoms. Patient further advised but rate is in good condition for 12 months and will need battery change in 1 year. Advised to follow-up with truss designer, Dr. Santos Blanco in [facility]. He himself admittedly has not followed since 2018. He understands the consequences of complete heart block, pacemaker follow-up but he still signed AMA. Physical Exam Narrative Patient was seen and examined today. Please see progress note of yesterday for a detailed conversation with the patient, history taking, exam findings and discussion with the color card maker. ABG / Lab / Microbiology Data Result Diagrams: 12/09/20 09:25 12/09/20 09:25 Discharge Plan Admission Admit Date/Time: 12/08/20 18:02 Attending Provider: Bhavesh Vidal Primary Care Provider: Care Physician,No Primary Instructions Additional Instructions / Restrictions: PATIENT LEFT AMA Discharge Orders/Prescriptions Prescriptions: No Action NK RF: 0 Referrals / Follow Up: Care Physician,No Primary [Primary Care Provider] - Disposition Disposition (needs filled in before D/C Order can be placed): Home, Self Care Charges/Coding Visit Charges Inpatient E&M: 52116 Disch Hosp
--- NOTE | 2020-12-10 11:14 | CASEMGMT ---
Kari from [facility] came in to see patient. SW updated her that patient was discharged from the program for breaking his R[employer] agreement. She said she did talk with [facility] (inpatient treatment place patient wants to go to) and they will call patient. Vale Weiss SALES FLOOR ASSOCIATEAstrid MAURICE
[2020-12-10 16:09] LABS: HEPATITIS B SURFACE AG Negative (Negative); Hepatitis B Core AB IgM Negative (Negative); Hepatitis B Core Ab Total Negative (Negative); Hepatitis Be Ab Negative (Negative); Hepatitis Be Ag Negative (Negative); Hepatitis C Ab >11.0 s/co ratio (0.0-0.9)
[2020-12-11 14:36] LABS: Hep B Surface Antibodies Non Reactive (.)
== END 2020-12-09 18:55 | disposition left against medical advice (07) ==
LOC: ED 17:53 → PCU 12-09 06:36
PROVIDERS: Admitting Provider Family Medicine; Emergency Provider Emergency Medicine; Visit Provider Internal Medicine
DX: R07.89 Other chest pain (principal); Z59.0 Homelessness; I44.2 Atrioventricular block, complete; Z95.0 Presence of cardiac pacemaker; F17.210 Nicotine dependence, cigarettes, uncomplicated; R00.2 Palpitations; F11.23 Opioid dependence with withdrawal; I47.2 Ventricular tachycardia; E87.1 Hypo-osmolality and hyponatremia; B18.2 Chronic viral hepatitis C; Q23.1 Congenital insufficiency of aortic valve
CPT/HCPCS: 36415; 71045; 80048; 80053; 80307; 82077; 83735; 84100; 84484; 85025; 86703; 86704; 86705; 86706; 86707; 86803; 87340; 87350; 93005; 99285; 99406; H0012; J7120